=== PATIENT | female | born 1990 | race Two or more races ===

== ENCOUNTER 2023-09-17 23:42 | Emergency (ER) | payer MEDICAID, OTHER ==
[~2023-09-17] VITALS: Ht 157.5 cm; Wt 60.8 kg
[2023-09-17 23:54] VITALS: BP 138/73; PULSE 90; RESP 20; TEMP 98; O2SAT 98
[2023-09-18 01:42] LABS: APPEARANCE,URINE CLEAR (CLEAR); BILIRUBIN,URINE NEGATIVE (NEGATIVE); BLOOD, URINE NEGATIVE (NEGATIVE); COLOR,URINE YELLOW (YELLOW); LEUKOCYTE ESTERASE ,URINE NEGATIVE (NEGATIVE); NITRITE, URINE POSITIVE (NEGATIVE); PH,URINE 7.5 (5.0-9.0); PROTEIN,URINE TRACE (NEGATIVE); UGLUCOSE 3+ (NEGATIVE)
[2023-09-18 01:49] LABS: RBC,URINE 0-5 /HPF (0-5)
[2023-09-18 01:50] LABS: BACTERIA,URINE 10-30 (MOD) /HPF (None Seen); MUCUS,URINE 1+ /LPF (None Seen); SQUAMOUS EPITHELIAL CELL,UR 0-3 (FEW) /LPF (0-3 (FEW)); WBC,URINE TOO MANY TO COUNT /HPF (0-5)
[2023-09-18] MEDS ORDERED: cephALEXin 500 MG CAP PO ONE (03:25)
[2023-09-18] MEDS ORDERED: IBUPROFEN 600 MG TAB PO ONE (03:25)
[2023-09-18] MEDS ORDERED: CEPH-588 PO (03:28)
[2023-09-18 04:00] VITALS: BP 128/65; PULSE 90; RESP 20; TEMP 98; O2SAT 98
== END 2023-09-18 04:00 | disposition home or self-care (01) ==
LOC: MED 23:42
DX: L02.511 Cutaneous abscess of right hand (principal); N39.0 Urinary tract infection, site not specified; Z79.899 Other long term (current) drug therapy
CPT/HCPCS: 81001; 81025; 87086; 99283